=== PATIENT | male | born 2005 | race Caucasian/White ===

== ENCOUNTER → 2023-10-12 | Outpatient (CLI) | payer BC ==
--- NOTE | 2023-10-13 08:59 | CT ---
EXAMINATION TYPE: CT abdomen pelvis w con CT DLP: 352.5 mGycm, Automated exposure control for dose reduction was used. DATE OF EXAM: 10/12/2023 6:41 PM COMPARISON: Scrotal ultrasound 2 01/18/2005. 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 Contrast used:100 cc mL of Isovue 300 with IV Contrast, (none if empty) Oral contrast used: with Oral Contrast (none if empty) FINDINGS: LOWER CHEST: Unremarkable ABDOMEN LIVER: Unremarkable GALLBLADDER AND BILE DUCTS: Unremarkable. PANCREAS: Unremarkable. SPLEEN: Unremarkable. ADRENAL GLANDS: Unremarkable. KIDNEYS AND URETERS: No evidence of hydronephrosis or renal calculus. The ureters are unremarkable. PELVIS BLADDER: Unremarkable REPRODUCTIVE: The scrotum appears to have one testis and may be the left testis. The right testis is not definitively visualized. ABDOMEN & PELVIS STOMACH AND BOWEL: No evidence of bowel obstruction. PERITONEUM/RETROPERITONEUM: No evidence of pneumoperitoneum or free fluid. VASCULATURE: No evidence of aortic aneurysm. MUSCULOSKELETAL: No acute osseous abnormalities LYMPH NODES: No gross evidence for lymphadenopathy. SOFT TISSUE/ABDOMINAL WALL: Unremarkable IMPRESSION: 1. The scrotum appears to have one testis and may be the left testis. The right testis is not defini tively visualized. This is discordant with provided history. 2. No evidence for acute abdominal process or mass or lymphadenopathy.
== END | disposition home or self-care (01) ==
LOC: RADCTMAIN 16:02
PROVIDERS: ATTEND Urology
DX: Q55.0 Absence and aplasia of testis (principal)
CPT/HCPCS: 74177; Q9967